=== PATIENT | female | born 1975 | race Hispanic/Latino ===

== ENCOUNTER 2016-11-29 00:19 | Emergency (ER) | payer OTHER ==
[2016-11-29 00:36] VITALS: BP 130/90; PULSE 77; RESP 15; TEMP 97.9; O2SAT 99
[2016-11-29] MEDS ORDERED: Sodium Chloride 0.9% 1,000 ML IV STA (00:53)
[2016-11-29] MEDS ORDERED: diaZEpam 10 mg/2 ml Inj ONE (00:53)
[2016-11-29] MEDS ORDERED: diaZEpam 10 mg/2 ml Inj IVP ONE (00:53)
--- NOTE | 2016-11-29 01:05 | ED PDOC ---
HPI: General Adult Time Seen by Provider: 11/29/16 00:39 Chief Complaint (Nursing): Back Pain Chief Complaint (Provider): neck pain and stiffness History Per: Patient History/Exam Limitations: no limitations Onset/Duration Of Symptoms: Days (1 week ) Have you had recent travel within the past 21 days to any of the following countries: [place], [place], [place] or [place]?: No Current Symptoms Are (Timing): Still Present Additional Complaint(s): 41yo female with PMHx including degenerative disc disease of neck, insulin resistance, anxiety, and migraines presents to the ED with c/o neck pain and stiffness for 1 week. Patient reports symptoms have gotten worse over the course of a week. Saw chiropractor today and took 2.5mg of valium with no relief. Patient states she is unable to turn head due to stiffness. Pain is 7/ 10 and worse with movement. Denies headache, n/v, fever, photophobia. Past Medical History Reviewed: Historical Data, Nursing Documentation, Vital Signs Vital Signs: Last Vital Signs Temp 97.9 F 11/29/16 00:31 Pulse 77 11/29/16 00:31 Resp 15 11/29/16 00:31 BP 130/90 11/29/16 00:31 Pulse Ox 99 11/29/16 01:10 - Medical History PMH: Anxiety, Migraine Other PMH: degenerative disc disease of neck, insulin resistance - Surgical History Surgical History: No Surg Hx - Family History Family History: States: No Known Family Hx - Social History Current smoker - smoking cessation education provided: No Alcohol: None Drugs: Denies - Home Medications Home Medications: Ambulatory Orders Medication Instructions Recorded Cyclobenzaprine [Cyclobenzaprine 10 mg PO TID PRN #15 tab 11/29/16 HCl] diaZEpam [Valium] 0.5 tab PO PRN PRN 11/29/16 traMADol [Ultram] 50 mg PO Q6 PRN #12 tab 11/29/16 - Allergies Allergies/Adverse Reactions: Allergies Allergy/AdvReac Type Severity Reaction Status Date / Time No Known Allergies Allergy Verified 11/29/16 00:44 Review of Systems ROS Statement: Except As Marked, All Systems Reviewed And Found Negative Constitutional: Negative for: Fever Eyes: Positive for: Other (no photophobia ) Gastrointestinal: Negative for: Nausea, Vomiting Musculoskeletal: Positive for: Neck Pain (and stiffness ) Neurological: Negative for: Headache Physical Exam - Reviewed Nursing Documentation Reviewed: Yes Vital Signs Reviewed: Yes - Physical Exam Appears: Positive for: Well, No Acute Distress, Uncomfortable Head Exam: Positive for: ATRAUMATIC, NORMAL INSPECTION, NORMOCEPHALIC Skin: Positive for: Normal Color, Warm, Dry Eye Exam: Positive for: Normal appearance, EOMI, PERRL ENT: Positive for: Normal ENT Inspection Neck: Negative for: Normal (able to turn neck 30 degrees on right, cannot turn past midline on left ) Cardiovascular/Chest: Positive for: Regular Rate, Rhythm. Negative for: Murmur , Tachycardia Respiratory: Positive for: Normal Breath Sounds. Negative for: Wheezing, Respiratory Distress Gastrointestinal/Abdominal: Positive for: Normal Exam, Soft. Negative for: Tenderness Back: Positive for: Normal Inspection Extremity: Positive for: Normal ROM. Negative for: Deformity, Swelling Neurologic/Psych: Positive for: Alert, Oriented - ECG O2 Sat by Pulse Oximetry: 99 Pulse Ox Interpretation: Normal (RA) Medical Decision Making Medical Decision Makin: Impression: 41yo female w/ torticollis Plan: Morphine 6mg IVP, Valium 10mg IVP, IVF reassess 0200: Patient verbalized improvement after medications and is stable for d/c. Dx: torticollis, spasmodic Improved Scribe Attestation: Documented by Alyx Gama acting as a scribe for Alton Reeves MD. Provider Scribe Attestation: All medical record entries made by the Scribe were at my direction and personally dictated by me. I have reviewed the chart and agree that the record accurately reflects my personal performance of the history, physical exam, medical decision making, and the department course for this patient. I have also personally directed, reviewed, and agree with the discharge instructions and disposition. Disposition - Clinical Impression Clinical Impression: Torticollis, spasmodic - Patient ED Disposition Is Patient to be Admitted: No - Disposition Referrals: Evie Valerio MD [Primary Care Provider] - Disposition: Routine/Home Disposition Time: 02:00 Condition: IMPROVED Prescriptions: Cyclobenzaprine [Cyclobenzaprine HCl] 10 mg PO TID PRN #15 tab PRN Reason: neck stiffness/pain traMADol [Ultram] 50 mg PO Q6 PRN #12 tab PRN Reason: neck pain Instructions: Muscle Spasm (ED)
== END 2016-11-29 06:07 | disposition home or self-care (01) ==
LOC: H.ER 00:19
DX: G24.3 Spasmodic torticollis (principal); E88.81 Metabolic syndrome and other insulin resistance; F41.9 Anxiety disorder, unspecified